=== PATIENT | male | born 1980 | race Two or more races ===

== ENCOUNTER 2018-05-23 05:49 | Emergency (ER) | payer MEDICAID ==
[~2018-05-23] VITALS: Ht 182.9 cm; Wt 104.3 kg
[~2018-05-23 05:49] MED LIST: ESOM40CA39 PO
[2018-05-23 06:21] LABS: Basophils # (auto) 0 uL; Basophils % (auto) 0.1 % (0.0-2.0); Eosinophils # (auto) 0 uL; Hematocrit 47.2 % (41.0-53.0); Hemoglobin 15.7 g/dL (13.5-17.5); Lymphocytes # (auto) 0.7 uL; Mean Corpuscular Hemoglobin 29.1 pg (28.0-32.0); Mean Corpuscular Hgb Conc. 33.3 g/dL (32.0-36.0); Mean Corpuscular Volume 87.3 fL (80.0-100.0); Monocytes # (auto) 0.9 uL; Monocytes % (auto) 5.3 % (0.0-12.0); Neutrophils % (auto) 90.6 % (37.0-80.0); Platelet Count (auto) 326 10^3/uL (140-450); Red Cell Distribution Width 13.3 % (11.8-14.3); White Blood Cell 17.7 10^3/uL (4.4-10.8)
[2018-05-23 06:41] LABS: Albumin 4.5 g/dL (3.4-5.0); BUN/Creatinine Ratio 17.5; Calcium 9.8 mg/dL (8.5-10.1); Potassium 3.2 mmol/L (3.5-5.1)
[2018-05-23 06:44] LABS: Total Protein 8.9 g/dL (6.4-8.2)
[2018-05-23 07:19] LABS: Urine Bacteria NONE SEEN /hpf (None Seen); Urine Blood Negative /uL (Negative); Urine Mucus FEW (None Seen); Urine Specific Gravity 1.036 (1.001-1.035); Urine WBC 1 /hpf (0 - 3)
[2018-05-23] MEDS ORDERED: SODIUM CHLORIDE 0.9% 1,000 ML IV ONE (07:30)
[2018-05-23] MEDS ORDERED: POTASSIUM EFFERVESENT TAB 25 MEQ PO ONE (07:30)
[2018-05-23] MEDS ORDERED: HYDROcodone-ACET 5/325MG TAB PO ONE (07:30)
[2018-05-23] MEDS ORDERED: PANTOPRAZOLE 40 MG/10 ML VIAL IV ONE (07:30)
[2018-05-23] MEDS ORDERED: cefTRIAXone 1GM/10ml IVPUSH 10 ML IV ONE (07:45)
[2018-05-23 09:22] VITALS: BP 128/73
== END 2018-05-23 09:34 | disposition home or self-care (01) ==
LOC: EDBD 05:49 → ER 05:53
DX: E87.6 Hypokalemia (principal); R73.9 Hyperglycemia, unspecified; R11.2 Nausea with vomiting, unspecified; D72.829 Elevated white blood cell count, unspecified; K21.9 Gastro-esophageal reflux disease without esophagitis; F17.210 Nicotine dependence, cigarettes, uncomplicated; F12.10 Cannabis abuse, uncomplicated
CPT/HCPCS: 36415; 74176; 80053; 81001; 82150; 83036; 83690; 83735; 85025; 96361; 96374; 96375; 99285; C9113; J0696; J7030

== ENCOUNTER 2018-06-22 09:57 | Emergency (ER) | payer MEDICAID ==
[~2018-06-22] VITALS: Ht 182.9 cm; Wt 98.4 kg
[2018-06-22] MEDS ORDERED: SODIUM CHLORIDE 0.9% 1,000 ML IVB ONE (10:11)
[2018-06-22] MEDS ORDERED: NALBUPHINE HCL 10 MG/1ml INJECTION IV ONE (10:15)
[2018-06-22] MEDS ORDERED: ONDANSETRON HCL 4 MG/2 ML VIAL IV ONE (10:15)
[2018-06-22] MEDS ORDERED: PANTOPRAZOLE 40 MG TAB PO ONE (10:45)
[2018-06-22 10:52] LABS: Urine Bacteria NONE SEEN /hpf (None Seen); Urine Blood Negative /uL (Negative); Urine Mucus FEW (None Seen); Urine Specific Gravity 1.029 (1.001-1.035); Urine WBC 2 /hpf (0 - 3)
[2018-06-22 11:15] LABS: Basophils # (auto) 0 uL; Basophils % (auto) 0.1 % (0.0-2.0); Eosinophils # (auto) 0 uL; Hematocrit 43.3 % (41.0-53.0); Hemoglobin 15.1 g/dL (13.5-17.5); Lymphocytes # (auto) 0.9 uL; Lymphocytes % (auto) 8.8 % (10.0-50.0); Mean Corpuscular Hemoglobin 30.5 pg (28.0-32.0); Mean Corpuscular Hgb Conc. 34.7 g/dL (32.0-36.0); Mean Corpuscular Volume 87.9 fL (80.0-100.0); Monocytes # (auto) 0.7 uL; Monocytes % (auto) 6.9 % (0.0-12.0); Neutrophils # (auto) 8.6 uL; Neutrophils % (auto) 84.2 % (37.0-80.0); Nucleated Red Blood Cells % 0.1 %; Platelet Count (auto) 366 10^3/uL (140-450); Red Blood Cells 4.93 10^6/uL (4.5-5.90); Red Cell Distribution Width 13.3 % (11.8-14.3); White Blood Cell 10.2 10^3/uL (4.4-10.8)
[2018-06-22 11:32] LABS: Potassium 3.4 mmol/L (3.5-5.1)
[2018-06-22 11:38] LABS: Albumin 4.3 g/dL (3.4-5.0); BUN/Creatinine Ratio 13.8; Calcium 9.3 mg/dL (8.5-10.1)
[2018-06-22 11:41] LABS: Bilirubin, Total 0.8 mg/dL (0.2-1.0); Total Protein 8.3 g/dL (6.4-8.2)
[2018-06-22 13:08] VITALS: BP 127/83
== END 2018-06-22 13:23 | disposition home or self-care (01) ==
LOC: ER 10:00
DX: K29.70 Gastritis, unspecified, without bleeding (principal); K44.9 Diaphragmatic hernia without obstruction or gangrene; K21.9 Gastro-esophageal reflux disease without esophagitis; F17.210 Nicotine dependence, cigarettes, uncomplicated
CPT/HCPCS: 36415; 74176; 80053; 81001; 82150; 83690; 85025; 96361; 96374; 96375; 99285; J2300; J2405; J7030

== ENCOUNTER 2018-07-17 09:48 | Emergency (ER) | payer MEDICAID ==
[~2018-07-17] VITALS: Ht 182.9 cm; Wt 99.8 kg
[2018-07-17] MEDS ORDERED: SODIUM CHLORIDE 0.9% 1,000 ML IV ONE (09:53)
[2018-07-17] MEDS ORDERED: ONDANSETRON HCL 4 MG/2 ML VIAL IV ONE (10:00)
[2018-07-17 10:20] LABS: Basophils # (auto) 0 uL; Basophils % (auto) 0.1 % (0.0-2.0); Eosinophils # (auto) 0 uL; Hematocrit 43.6 % (41.0-53.0); Hemoglobin 14.1 g/dL (13.5-17.5); Lymphocytes # (auto) 0.9 uL; Lymphocytes % (auto) 8.1 % (10.0-50.0); Mean Corpuscular Hemoglobin 28.3 pg (28.0-32.0); Mean Corpuscular Hgb Conc. 32.2 g/dL (32.0-36.0); Mean Corpuscular Volume 87.7 fL (80.0-100.0); Monocytes % (auto) 8.5 % (0.0-12.0); Neutrophils # (auto) 9.4 uL; Neutrophils % (auto) 83.3 % (37.0-80.0); Platelet Count (auto) 373 10^3/uL (140-450); Red Blood Cells 4.97 10^6/uL (4.5-5.90); Red Cell Distribution Width 13.4 % (11.8-14.3); White Blood Cell 11.2 10^3/uL (4.4-10.8)
[2018-07-17 10:33] LABS: INR 0.99 (0.9-1.15); Partial Thromboplastin Time 26.1 sec (23.78-33.04); Prothrombin Time 10.6 sec (9.27-12.13)
[2018-07-17 10:34] LABS: Albumin 4.3 g/dL (3.4-5.0); Anion Gap 10 (5-15); Blood Urea Nitrogen 15 mg/dL (7-18); Calcium 9.4 mg/dL (8.5-10.1); Carbon Dioxide 27 mmol/L (21-32); Chloride 98 mmol/L (98-107); Glucose 120 mg/dL (74-106); Potassium 3.3 mmol/L (3.5-5.1); Sodium 135 mmol/L (136-145)
[2018-07-17 10:41] LABS: Alanine Aminotransferase 21 U/L (16-61); Alkaline Phosphatase 66 U/L (45-117); Aspartate Aminotransferase 9 U/L (15-37); BUN/Creatinine Ratio 12.8; Bilirubin, Total 0.8 mg/dL (0.2-1.0); GFR African American 90 mL/min; GFR Non-African American 75 mL/min
[2018-07-17 11:04] LABS: Urine WBC None Seen /hpf (0 - 3)
[2018-07-17 11:13] LABS: Urine Bacteria NONE SEEN /hpf (None Seen); Urine Blood Negative /uL (Negative); Urine Specific Gravity 1.012 (1.001-1.035)
[2018-07-17] MEDS ORDERED: cefTRIAXone 1GM/50ML D5W 50 ML IV ONE (12:00)
[2018-07-17] MEDS ORDERED: POTASSIUM EFFERVESENT TAB 25 MEQ PO ONE (12:00)
[2018-07-17 12:27] VITALS: BP 120/89
== END 2018-07-17 12:31 | disposition home or self-care (01) ==
LOC: EDBD 09:48 → ER 09:48 → EDUNIT# 09:48 → ER 12:31
DX: E87.6 Hypokalemia (principal); K29.70 Gastritis, unspecified, without bleeding; K21.9 Gastro-esophageal reflux disease without esophagitis; F17.210 Nicotine dependence, cigarettes, uncomplicated; F12.10 Cannabis abuse, uncomplicated; Z79.899 Other long term (current) drug therapy
CPT/HCPCS: 36415; 71046; 74176; 80053; 81001; 84484; 85025; 85610; 85730; 96361; 96365; 96375; 99285; J0696; J2405

== ENCOUNTER 2018-07-28 11:27 | Emergency (ER) | payer MEDICAID ==
[~2018-07-28] VITALS: Ht 182.9 cm; Wt 99.8 kg
[2018-07-28] MEDS ORDERED: SODIUM CHLORIDE 0.9% 1,000 ML IV ONE (11:46)
[2018-07-28] MEDS ORDERED: PANTOPRAZOLE 40 MG/10 ML VIAL IV ONE (12:00)
[2018-07-28] MEDS ORDERED: ONDANSETRON HCL 4 MG/2 ML VIAL IV ONE (12:00)
[2018-07-28 12:20] LABS: Basophils # (auto) 0 uL; Basophils % (auto) 0.1 % (0.0-2.0); Eosinophils # (auto) 0 uL; Hematocrit 44.3 % (41.0-53.0); Hemoglobin 14.9 g/dL (13.5-17.5); Lymphocytes # (auto) 0.8 uL; Lymphocytes % (auto) 7.3 % (10.0-50.0); Mean Corpuscular Hemoglobin 29.4 pg (28.0-32.0); Mean Corpuscular Hgb Conc. 33.6 g/dL (32.0-36.0); Mean Corpuscular Volume 87.6 fL (80.0-100.0); Monocytes # (auto) 0.8 uL; Monocytes % (auto) 7.5 % (0.0-12.0); Neutrophils # (auto) 8.8 uL; Neutrophils % (auto) 85.1 % (37.0-80.0); Platelet Count (auto) 371 10^3/uL (140-450); Red Blood Cells 5.07 10^6/uL (4.5-5.90); Red Cell Distribution Width 13.3 % (11.8-14.3); White Blood Cell 10.4 10^3/uL (4.4-10.8)
[2018-07-28 12:41] LABS: Urine Bacteria NONE SEEN /hpf (None Seen); Urine Mucus FEW (None Seen); Urine WBC 1 /hpf (0 - 3)
[2018-07-28 12:44] LABS: Urine Blood Normal /uL (Negative); Urine Specific Gravity 1.022 (1.001-1.035)
[2018-07-28 13:01] LABS: Albumin 4.3 g/dL (3.4-5.0); Calcium 9.6 mg/dL (8.5-10.1); Potassium 3.6 mmol/L (3.5-5.1)
[2018-07-28 13:05] LABS: BUN/Creatinine Ratio 12.3; Bilirubin, Total 0.6 mg/dL (0.2-1.0); Total Protein 8.2 g/dL (6.4-8.2)
[2018-07-28 14:02] VITALS: BP 127/80
== END 2018-07-28 14:32 | disposition home or self-care (01) ==
LOC: ER 11:27
DX: R11.2 Nausea with vomiting, unspecified (principal); K21.9 Gastro-esophageal reflux disease without esophagitis
CPT/HCPCS: 36415; 74176; 80053; 81001; 85025; 96361; 96374; 96375; 99285; C9113; J2405; J7030

== ENCOUNTER 2018-08-18 13:03 | Emergency (ER) | payer MEDICAID ==
[~2018-08-18] VITALS: Ht 182.9 cm; Wt 97.5 kg
[2018-08-18] MEDS ORDERED: SODIUM CHLORIDE 0.9% 1,000 ML IV ONE (13:43)
[2018-08-18] MEDS ORDERED: ONDANSETRON HCL 4 MG/2 ML VIAL IV ONE ×2 (13:45→15:45)
[2018-08-18 14:16] VITALS: BP 156/97
[2018-08-18 14:20] LABS: Basophils # (auto) 0 uL; Basophils % (auto) 0.5 % (0.0-2.0); Eosinophils # (auto) 0 uL; Eosinophils % (auto) 0.2 % (0.0-7.0); Hemoglobin 14.7 g/dL (13.5-17.5); Lymphocytes # (auto) 1.2 uL; Lymphocytes % (auto) 16.1 % (10.0-50.0); Mean Corpuscular Hgb Conc. 33.3 g/dL (32.0-36.0); Mean Corpuscular Volume 87.3 fL (80.0-100.0); Monocytes # (auto) 0.5 uL; Monocytes % (auto) 6.9 % (0.0-12.0); Neutrophils # (auto) 5.8 uL; Neutrophils % (auto) 76.3 % (37.0-80.0); Nucleated Red Blood Cells % 0.1 %; Platelet Count (auto) 318 10^3/uL (140-450); Red Blood Cells 5.05 10^6/uL (4.5-5.90); Red Cell Distribution Width 13.4 % (11.8-14.3); White Blood Cell 7.6 10^3/uL (4.4-10.8)
[2018-08-18 14:38] LABS: Albumin 4.3 g/dL (3.4-5.0); BUN/Creatinine Ratio 17.2; Calcium 9.2 mg/dL (8.5-10.1); Potassium 3.8 mmol/L (3.5-5.1)
[2018-08-18 14:41] LABS: Bilirubin, Total 0.7 mg/dL (0.2-1.0)
== END 2018-08-18 15:54 | disposition home or self-care (01) ==
LOC: ER 13:03
DX: R11.2 Nausea with vomiting, unspecified (principal); K21.9 Gastro-esophageal reflux disease without esophagitis; F12.10 Cannabis abuse, uncomplicated
CPT/HCPCS: 36415; 80053; 85025; 96361; 96374; 96376; 99283; J2405; J7030

== ENCOUNTER 2018-08-21 09:32 | Emergency (ER) | payer MEDICAID ==
[~2018-08-21] VITALS: Ht 182.9 cm; Wt 97.5 kg
[2018-08-21 10:29] LABS: Basophils # (auto) 0.1 uL; Basophils % (auto) 0.7 % (0.0-2.0); Eosinophils # (auto) 0 uL; Eosinophils % (auto) 0.5 % (0.0-7.0); Hematocrit 44.1 % (41.0-53.0); Hemoglobin 14.7 g/dL (13.5-17.5); Lymphocytes # (auto) 1.4 uL; Lymphocytes % (auto) 19.2 % (10.0-50.0); Mean Corpuscular Hemoglobin 28.8 pg (28.0-32.0); Mean Corpuscular Hgb Conc. 33.3 g/dL (32.0-36.0); Mean Corpuscular Volume 86.4 fL (80.0-100.0); Monocytes # (auto) 0.6 uL; Monocytes % (auto) 8.4 % (0.0-12.0); Neutrophils # (auto) 5.3 uL; Neutrophils % (auto) 71.2 % (37.0-80.0); Nucleated Red Blood Cells % 0.1 %; Platelet Count (auto) 338 10^3/uL (140-450); Red Cell Distribution Width 13.2 % (11.8-14.3); White Blood Cell 7.5 10^3/uL (4.4-10.8)
[2018-08-21 10:45] LABS: Urine WBC None Seen /hpf (0 - 3)
[2018-08-21 10:46] LABS: Albumin 4.2 g/dL (3.4-5.0); Calcium 9.1 mg/dL (8.5-10.1); Potassium 3.7 mmol/L (3.5-5.1)
[2018-08-21 10:49] LABS: BUN/Creatinine Ratio 17.2; Bilirubin, Total 0.6 mg/dL (0.2-1.0); Total Protein 7.5 g/dL (6.4-8.2)
[2018-08-21 10:53] LABS: Urine Bacteria NONE SEEN /hpf (None Seen); Urine Blood Negative /uL (Negative); Urine Specific Gravity 1.002 (1.001-1.035)
[2018-08-21 10:54] LABS: INR 0.93 (0.9-1.15); Partial Thromboplastin Time 26.4 sec (23.78-33.04)
[2018-08-21 12:15] VITALS: BP 126/76
== END 2018-08-21 12:18 | disposition home or self-care (01) ==
LOC: ER 09:32
DX: K64.9 Unspecified hemorrhoids (principal); K21.9 Gastro-esophageal reflux disease without esophagitis; F12.10 Cannabis abuse, uncomplicated
CPT/HCPCS: 36415; 74176; 80053; 81001; 85025; 85610; 85730

== ENCOUNTER 2019-05-04 21:08 | Emergency (ER) | payer MEDICAID ==
[~2019-05-04] VITALS: Ht 182.9 cm; Wt 90.7 kg
[2019-05-04 21:42] LABS: Basophils # (auto) 0.1 uL; Basophils % (auto) 0.6 % (0.0-2.0); Eosinophils # (auto) 0 uL; Eosinophils % (auto) 0.2 % (0.0-7.0); Hematocrit 43.4 % (41.0-53.0); Hemoglobin 14.4 g/dL (13.5-17.5); Lymphocytes # (auto) 1.9 uL; Lymphocytes % (auto) 16.5 % (10.0-50.0); Mean Corpuscular Hemoglobin 28.6 pg (28.0-32.0); Mean Corpuscular Hgb Conc. 33.2 g/dL (32.0-36.0); Mean Corpuscular Volume 85.9 fL (80.0-100.0); Monocytes # (auto) 1.1 uL; Monocytes % (auto) 9.7 % (0.0-12.0); Neutrophils # (auto) 8.4 uL; Platelet Count (auto) 343 10^3/uL (140-450); Red Blood Cells 5.06 10^6/uL (4.5-5.90); Red Cell Distribution Width 13.3 % (11.8-14.3); White Blood Cell 11.5 10^3/uL (4.4-10.8)
[2019-05-04 22:02] LABS: Albumin 4.2 g/dL (3.4-5.0); BUN/Creatinine Ratio 16.7; Calcium 9.1 mg/dL (8.5-10.1)
[2019-05-04 22:05] LABS: Bilirubin, Total 0.7 mg/dL (0.2-1.0); Total Protein 7.5 g/dL (6.4-8.2)
[2019-05-04 22:45] LABS: Potassium 2.9 mmol/L (3.5-5.1)
[2019-05-05] MEDS ORDERED: metroNIDAZOLE 500MG/100ML 100 ML IV ONE (01:30)
[2019-05-05] MEDS ORDERED: SODIUM CHLORIDE 0.9% 1,000 ML IV ONE (01:30)
[2019-05-05] MEDS ORDERED: ONDANSETRON HCL 4 MG/2 ML VIAL IV ONE (01:30)
[2019-05-05] MEDS ORDERED: POTASSIUM CHL 20 Meq TABLET PO ONE (01:45)
[2019-05-05 02:00] VITALS: BP 138/73
[2019-05-05] MEDS ORDERED: cefTRIAXone 1GM/50ML D5W 50 ML IV ONE (02:00)
[2019-05-05 02:02] LABS: Urine Bacteria NONE SEEN /hpf (None Seen); Urine Blood Negative /uL (Negative); Urine Specific Gravity 1.012 (1.001-1.035); Urine WBC 1 /hpf (0 - 3)
[2019-05-05 02:19] LABS: Amphetamine Screen, Urine NEGATIVE (NEGATIVE); Barbiturate Scree,Urine NEGATIVE (NEGATIVE); Benzodiazephine Screen, Urine NEGATIVE (NEGATIVE); Cannabinoid Screen, Urine POSITIVE (NEGATIVE)
[2019-05-05 02:26] LABS: Alcohol, Urine < 3.0 mg/dL (0-5); Cocaine Screen, Urine NEGATIVE (NEGATIVE); Opiate Scree,Urine NEGATIVE (NEGATIVE); Phencyclidine Screen, Urine NEGATIVE (NEGATIVE)
== END 2019-05-05 03:54 | disposition home or self-care (01) ==
LOC: ER 21:08
DX: K29.00 Acute gastritis without bleeding (principal); F12.188 Cannabis abuse with other cannabis-induced disorder; K21.9 Gastro-esophageal reflux disease without esophagitis
CPT/HCPCS: 36415; 74176; 80053; 80307; 81001; 82150; 83690; 85025; 96365; 96367; 96375; 99284; J0696; J2405; J3490; J7030

== ENCOUNTER 2019-05-31 08:21 | Emergency (ER) | payer MEDICAID ==
[~2019-05-31] VITALS: Ht 182.9 cm; Wt 90.7 kg
[2019-05-31 08:47] LABS: Basophils # (auto) 0 uL; Basophils % (auto) 0.1 % (0.0-2.0); Eosinophils # (auto) 0 uL; Hematocrit 46.5 % (41.0-53.0); Hemoglobin 15.7 g/dL (13.5-17.5); Lymphocytes # (auto) 0.5 uL; Lymphocytes % (auto) 4.1 % (10.0-50.0); Mean Corpuscular Hemoglobin 29.4 pg (28.0-32.0); Mean Corpuscular Hgb Conc. 33.8 g/dL (32.0-36.0); Mean Corpuscular Volume 87.1 fL (80.0-100.0); Monocytes # (auto) 0.5 uL; Monocytes % (auto) 3.6 % (0.0-12.0); Neutrophils # (auto) 12.1 uL; Neutrophils % (auto) 92.2 % (37.0-80.0); Platelet Count (auto) 427 10^3/uL (140-450); Red Blood Cells 5.33 10^6/uL (4.5-5.90); Red Cell Distribution Width 13.8 % (11.8-14.3); White Blood Cell 13.1 10^3/uL (4.4-10.8)
[2019-05-31] MEDS ORDERED: MORPHINE SULF INJ 2 MG/ML SYRINGE 1ML IV ONE (09:00)
[2019-05-31] MEDS ORDERED: LIDOCAINE VISCOUS 2% 15ML UD PO ONE (09:00)
[2019-05-31] MEDS ORDERED: ONDANSETRON HCL 4 MG/2 ML VIAL IV ONE (09:00)
[2019-05-31] MEDS ORDERED: ALUM & MAG HYDROX-SIMETH LIQ(MAALOX) 30 ML PO ONE (09:00)
[2019-05-31] MEDS ORDERED: DONNATAL 5ml ORAL Elix (BELLADONNA ALK-PHENOBARB) PO ONE (09:00)
[2019-05-31 09:14] LABS: Urine Bacteria NONE SEEN /hpf (None Seen); Urine Blood Negative /uL (Negative); Urine Mucus FEW (None Seen); Urine Specific Gravity 1.035 (1.001-1.035); Urine WBC 1 /hpf (0 - 3)
[2019-05-31 09:18] LABS: Albumin 4.5 g/dL (3.4-5.0); Calcium 9.8 mg/dL (8.5-10.1); Potassium 3.4 mmol/L (3.5-5.1)
[2019-05-31 09:22] LABS: BUN/Creatinine Ratio 16.3; Bilirubin, Total 0.7 mg/dL (0.2-1.0); Total Protein 8.6 g/dL (6.4-8.2)
[2019-05-31] MEDS ORDERED: SODIUM CHLORIDE 0.9% 1,000 ML IV ONE (09:29)
[2019-05-31] MEDS ORDERED: metroNIDAZOLE 500MG/100ML 100 ML IV ONE (09:30)
[2019-05-31] MEDS ORDERED: cefTRIAXone 1GM/50ML D5W 50 ML IV ONE (09:30)
[2019-05-31 09:53] VITALS: BP 143/87
== END 2019-05-31 12:04 | disposition home or self-care (01) ==
LOC: ER 08:21
DX: E86.0 Dehydration (principal); K21.9 Gastro-esophageal reflux disease without esophagitis
CPT/HCPCS: 36415; 74176; 80053; 81001; 85025; 96365; 96368; 96375; 99284; J0696; J2270; J2405; J3490; J7030

== ENCOUNTER 2019-07-24 08:47 | Emergency (ER) | payer MEDICAID ==
[~2019-07-24] VITALS: Ht 182.9 cm; Wt 88.5 kg
[2019-07-24] MEDS ORDERED: SODIUM CHLORIDE 0.9% 1,000 ML IV ONE ×4 (09:09→13:32)
[2019-07-24] MEDS ORDERED: MORPHINE SULFATE 4 MG/ML SYR/VIAL IV ONE (09:15)
[2019-07-24] MEDS ORDERED: ONDANSETRON HCL 4 MG/2 ML VIAL IV ONE (09:15)
[2019-07-24 09:34] LABS: Basophils # (auto) 0 uL; Basophils % (auto) 0.5 % (0.0-2.0); Eosinophils # (auto) 0.1 uL; Eosinophils % (auto) 0.6 % (0.0-7.0); Hematocrit 46.1 % (41.0-53.0); Hemoglobin 15.3 g/dL (13.5-17.5); Lymphocytes % (auto) 10.5 % (10.0-50.0); Mean Corpuscular Hemoglobin 29.3 pg (28.0-32.0); Mean Corpuscular Hgb Conc. 33.1 g/dL (32.0-36.0); Mean Corpuscular Volume 88.5 fL (80.0-100.0); Monocytes # (auto) 0.7 uL; Monocytes % (auto) 7.4 % (0.0-12.0); Neutrophils # (auto) 7.7 uL; Platelet Count (auto) 324 10^3/uL (140-450); Red Blood Cells 5.21 10^6/uL (4.5-5.90); Red Cell Distribution Width 13.6 % (11.8-14.3); White Blood Cell 9.5 10^3/uL (4.4-10.8)
[2019-07-24 09:38] LABS: Urine Bacteria NONE SEEN /hpf (None Seen); Urine Blood Negative /uL (Negative); Urine Mucus FEW (None Seen); Urine Specific Gravity 1.026 (1.001-1.035); Urine WBC 1 /hpf (0 - 3)
[2019-07-24 09:47] LABS: INR < 0.93 (0.9-1.15); Partial Thromboplastin Time 26.7 sec (23.64-32.05)
[2019-07-24 09:50] LABS: Amylase 70 U/L (25-115); Lipase 660 U/L (73-393)
[2019-07-24 09:57] LABS: Albumin 4.3 g/dL (3.4-5.0); Calcium 8.8 mg/dL (8.5-10.1); Potassium 3.8 mmol/L (3.5-5.1)
[2019-07-24 10:00] LABS: Bilirubin, Total 0.7 mg/dL (0.2-1.0); Total Protein 7.8 g/dL (6.4-8.2)
[2019-07-24] MEDS ORDERED: PIPERACILLIN-TAZOB 3.375GM 100 ML IV ONE (10:30)
[2019-07-24 12:57] LABS: Alcohol, Urine < 3.0 mg/dL (0-5); Amphetamine Screen, Urine NEGATIVE (NEGATIVE); Barbiturate Scree,Urine NEGATIVE (NEGATIVE); Benzodiazephine Screen, Urine NEGATIVE (NEGATIVE); Cannabinoid Screen, Urine POSITIVE (NEGATIVE); Cocaine Screen, Urine POSITIVE (NEGATIVE); Phencyclidine Screen, Urine NEGATIVE (NEGATIVE)
[2019-07-24 13:08] LABS: Opiate Scree,Urine NEGATIVE (NEGATIVE)
[2019-07-24 14:53] VITALS: BP 125/84
== END 2019-07-24 18:00 | disposition home or self-care (01) ==
LOC: ER 08:53
DX: K85.90 Acute pancreatitis without necrosis or infection, unspecified (principal); E86.0 Dehydration; F14.10 Cocaine abuse, uncomplicated; F12.10 Cannabis abuse, uncomplicated; K21.9 Gastro-esophageal reflux disease without esophagitis; Z79.899 Other long term (current) drug therapy
CPT/HCPCS: 36415; 71046; 74176; 80053; 80307; 81001; 82150; 83605; 83690; 85025; 85610; 85730; 87040; 93005; 96365; 96366; 96375; 99284; J2270; J2405; J2543; J7030

== ENCOUNTER 2019-09-13 09:34 | Emergency (ER) | payer MEDICAID ==
[~2019-09-13] VITALS: Ht 182.9 cm; Wt 90.7 kg
[2019-09-13 10:13] VITALS: BP 111/78
== END 2019-09-13 12:36 | disposition home or self-care (01) ==
LOC: ER 09:37
DX: S83.91XA Sprain of unspecified site of right knee, initial encounter (principal); K21.9 Gastro-esophageal reflux disease without esophagitis; X50.1XXA Overexertion from prolonged static or awkward postures, initial encounter; Y93.89 Activity, other specified; Y92.89 Other specified places as the place of occurrence of the external cause; Y99.8 Other external cause status
CPT/HCPCS: 73562

== ENCOUNTER 2019-10-30 11:17 | Emergency (ER) | payer MEDICAID ==
[~2019-10-30] VITALS: Ht 182.9 cm; Wt 93.0 kg
[2019-10-30 16:30] VITALS: BP 120/74
[2019-10-30] MEDS ORDERED: KETOROLAC TROMETH 60MG/2ML VIAL IM ONE (16:30)
== END 2019-10-30 16:39 | disposition home or self-care (01) ==
LOC: ER 11:17
DX: M79.642 Pain in left hand (principal)
CPT/HCPCS: 96372; 99283; J1885

== ENCOUNTER 2022-11-16 11:43 | Emergency (ER) | payer MEDICAID ==
[~2022-11-16] VITALS: Ht 182.9 cm; Wt 95.4 kg
[2022-11-16 11:51] VITALS: BP 158/96
[2022-11-16] MEDS ORDERED: PROCHLORPERAZINE EDISYLATE 5 MG/ML 2ML VIAL IV ONE (12:15)
[2022-11-16] MEDS ORDERED: SODIUM CHLORIDE 0.9% 1,000 ML IV ONE (12:15)
[2022-11-16] MEDS ORDERED: PANTOPRAZOLE 40 MG/10 ML VIAL INJ IV ONE (12:15)
[2022-11-16] MEDS ORDERED: ONDANSETRON HCL 4 MG/2 ML VIAL IV ONE (12:15)
[2022-11-16 13:27] LABS: Basophils # (auto) 0 10 ^3/uL (0-0.2); Basophils % (auto) 0.5 % (0.0-2.0); Eosinophils # (auto) 0 10 ^3/uL (0-0.8); Eosinophils % (auto) 0.1 % (0.0-7.0); Hematocrit 43.3 % (41.0-53.0); Hemoglobin 14.6 g/dL (13.5-17.5); Lymphocytes # (auto) 1.4 10 ^3/uL (0.4-5.4); Lymphocytes % (auto) 16.1 % (10.0-50.0); Mean Corpuscular Hemoglobin 29.4 pg (28.0-32.0); Mean Corpuscular Hgb Conc. 33.8 g/dL (32.0-36.0); Mean Corpuscular Volume 87.2 fL (80.0-100.0); Monocytes # (auto) 0.8 10 ^3/uL (0-1.3); Monocytes % (auto) 8.9 % (0.0-12.0); Neutrophils # (auto) 6.4 10 ^3/uL (1.6-8.6); Neutrophils % (auto) 74.4 % (37.0-80.0); Nucleated Red Blood Cells % 0.1 %; Red Blood Cells 4.96 10^6/uL (4.5-5.90); Red Cell Distribution Width 13.2 % (11.8-14.3); White Blood Cell 8.6 10^3/uL (4.4-10.8)
[2022-11-16 13:44] LABS: Albumin 4.6 g/dL (3.4-5.0); BUN/Creatinine Ratio 13.3; Calcium 9.8 mg/dL (8.5-10.1); Magnesium 2.2 mg/dL (1.6-2.6); Potassium 4.5 mmol/L (3.5-5.1)
[2022-11-16 13:47] LABS: Bilirubin, Total 0.7 mg/dL (0.2-1.0); Total Protein 7.5 g/dL (6.4-8.2)
== END 2022-11-16 17:31 | disposition left against medical advice (07) ==
LOC: ER 11:43 → EDBD 11:43 → ER 17:31
DX: R10.9 Unspecified abdominal pain (principal); R11.2 Nausea with vomiting, unspecified; K21.9 Gastro-esophageal reflux disease without esophagitis; Z79.899 Other long term (current) drug therapy
CPT/HCPCS: 36415; 80053; 83690; 83735; 85025; 96361; 96374; 96375; 99284; C9113; J0780; J7030